=== PATIENT | female | born 1960 | race Caucasian/White ===

== ENCOUNTER 2022-03-19 08:36 | Outpatient (CLI) | payer BC, SELFPAY ==
[2022-03-19 13:49] LABS: Basophils Absolute Auto 0.03 K/uL (0.00-0.30); Basophils Percent Auto 0.4 % (0.0-3.0); Eosinophils Absolute Auto 0.09 K/uL (0.00-0.50); Eosinophils Percent Auto 1.3 % (0.0-7.0); Hematocrit 43.6 % (33.0-51.0); Hemoglobin* 14.2 gm/dL (12.0-16.0); Immature Granulocytes Abs Auto 0.01 K/uL (0.00-0.30); Lymphocytes Percent Auto 23.9 % (20-44); Mean Corpuscular HGB Conc 33 gm/dL (32-36); Mean Corpuscular Hemoglobin 30 pg (26-34); Mean Corpuscular Volume 91 fL (80-100); Monocytes Percent Auto 9.1 % (0.0-11.0); Neutrophils Absolute Auto 4.63 K/uL (1.7-7.0); Neutrophils Percent Auto 65.2 % (42.0-72.0); Platelet Count* 360 K/uL (140-440); RDW Coefficient of Variation % 13.2 % (11.5-15.5); Red Blood Count 4.78 m/uL (4.00-5.20); White Blood Count* 7.11 K/uL (4.50-11.00)
[2022-03-19 13:57] LABS: Cholesterol* 264 mg/dL (90-199); Glucose* 98 mg/dL (60-115)
[2022-03-19 13:58] LABS: HDL Cholesterol* 81 mg/dL (>=50); LDL Cholesterol Calculated 167 mg/dL (<100); Triglycerides* 79 mg/dL (40-149)
[2022-03-19 14:02] LABS: Slide Review Reflex No
[2022-03-20 16:47] LABS: Cortisol, Serum 6.9 ug/dL
== END 2022-03-19 08:37 | disposition home or self-care (01) ==
PROVIDERS: PCP Nurse Practitioner Family; Visit Provider Nurse Practitioner Family
DX: Z01.419 Encounter for gynecological examination (general) (routine) without abnormal findings (principal); E66.3 Overweight; R00.2 Palpitations; Z13.1 Encounter for screening for diabetes mellitus; Z13.0 Encounter for screening for diseases of the blood and blood-forming organs and certain disorders involving the immune mechanism; Z13.6 Encounter for screening for cardiovascular disorders
CPT/HCPCS: 36415; 80061; 82533; 82947; 84443; 85025

== ENCOUNTER 2022-04-08 16:02 | Outpatient (CLI) | payer BC, SELFPAY ==
--- NOTE | 2022-04-08 15:30 | CRLHL7_ITS ---
For Patients: As a result of the Cures Act, medical imaging exams and procedure reports are released immediately into your electronic medical record. You may view this report before your referring provider. If you have questions, please contact your health care provider. DXA BONE MINERAL DENSITY STUDY, 04/08/2022 Reason for exam: History of ???stress? fracture of left hip with unknown etiology. Current height (inches): 66.0 Weight (lbs.): 185.0 Menopause age: 48 Ethnicity: White 1. Have you had a previous hip or vertebral fracture? Yes. 2. Have you had any fractures during your adult life which did not result from significant trauma (e.g., auto accident)? Yes. 3. Did either of your parents have a hip fracture? No. 4. Do you smoke? No. 5. Have you ever taken Glucocorticoids? No. 6. Do you have rheumatoid arthritis? No. 7. Do you have secondary osteoporosis? No. 8. Do you drink 3 or more alcoholic drinks per day? No. 9. Are you being treated for osteoporosis? No. 10. Have you ever taken any of the following medications: Actonel, Evista, Fosamax, Miacalcin, Reclast, Boniva, Forteo, HRT (i.e., estrogen/hormone therapy), Protelos, Prolia, Vitamin D, Calcium, other ??? please specify. ANSWER: Yes; other: multivitamin. 11. Do you have any of the following medical conditions: Anorexia or bulimia, asthma or emphysema, end stage renal disease, hyperparathyroidism, any seizure disorders, cancer, inflammatory bowel diseases, hysterectomy, other ??? please specify. ANSWER: Yes; other: bladder repair. 12. What was your maximum height (inches)? 66. 13. Do you perform weight bearing exercise regularly? No. 14. Do you regularly consume dairy products? Yes. 15. Do you drink caffeinated beverages? Yes. 16. At what age did your period start? 12. 17. Are you premenopausal? No. 18. How many full-term pregnancies have you had? 3. 19. Have you ever missed your period for more than 6 months in a row (not including or menopause)? No. TECHNIQUE: Bone mineral density study was performed using the [facility]. FINDINGS: The results of the study expressed as bone mineral density (BMD) are as follows: Lumbar Spine L1 to L4: BMD: 0.982 g/cm2. T-score: -0.6. Z-score: 1.1. Neck Left: BMD: 0.844 g/cm2. T-score: 0.0. Z-score: 1.4. Right: BMD: 0.855 g/cm2. T-score: 0.1. Z-score: 1.5. Total Left: BMD: 0.876 g/cm2. T-score: -0.5. Z-score: 0.6. Right: BMD: 0.932 g/cm2. T-score: -0.1. Z-score: 1.1. IMPRESSION: Normal bone density. VINAY GHOTRA M.D. Diagnostic Radiologist [email or web address] Transcribed: 9:[address]/Dictated by: Vinay Ghotra MD @ 04/09/2022 8:58:00 AM (Electronically Signed)
== END 2022-04-08 16:03 | disposition home or self-care (01) ==
LOC: RAD 16:03
PROVIDERS: PCP Nurse Practitioner Family; Visit Provider Nurse Practitioner Family
DX: Z13.820 Encounter for screening for osteoporosis (principal)
CPT/HCPCS: 77080

== ENCOUNTER 2022-05-08 08:13 | Outpatient (CLI) | payer BC, SELFPAY ==
--- NOTE | 2022-05-08 08:15 | CRLHL7_ITS ---
For Patients: As a result of the Century Cures Act, medical imaging exams and procedure reports are released immediately into your electronic medical record. You may view this report before your referring provider. If you have questions, please contact your health care provider. BILATERAL SCREENING MAMMOGRAM WITH COMPUTER-AIDED DETECTION AND TOMOSYNTHESIS TECHNIQUE: CC and MLO views were obtained. These mammographic images have been obtained using full-field digital technique. These mammographic images were interpreted with the benefit of computer-aided detection. Breast Tomosynthesis was used in this interpretation. COMPARISON FILM: 05/07/21, 09/22/19, 09/22/13. FINDINGS: There are scattered areas of fibroglandular density IMPRESSION: There is no radiographic evidence for malignancy. ASSESSMENT: BI-RADS Category 1: Negative RECOMMENDATION: Routine screening mammogram in 1 year. A lay language report of this examination will be provided to the patient. Vinay Fletcher M.D. Diagnostic Radiologist [email or web address] [email or web address] haines/Dictated by: Vinay Fletcher MD @ 05/08/2022 10:15:00 AM (Electronically Signed)
== END 2022-05-08 08:14 | disposition home or self-care (01) ==
PROVIDERS: PCP Nurse Practitioner Family; Visit Provider Nurse Practitioner Family
DX: Z12.31 Encounter for screening mammogram for malignant neoplasm of breast (principal)
CPT/HCPCS: 77063; 77067

== ENCOUNTER 2022-08-07 08:03 | Outpatient (CLI) | payer BC, SELFPAY ==
[2022-08-07 15:12] LABS: Basophils Absolute Auto 0.03 K/uL (0.00-0.30); Basophils Percent Auto 0.5 % (0.0-3.0); Eosinophils Absolute Auto 0.12 K/uL (0.00-0.50); Eosinophils Percent Auto 1.9 % (0.0-7.0); Hemoglobin* 14.8 gm/dL (12.0-16.0); Immature Granulocytes Abs Auto 0.05 K/uL (0.00-0.30); Immature Granulocytes Pct Auto 0.8 %; Lymphocytes Percent Auto 28.8 % (20-44); Mean Corpuscular HGB Conc 33 gm/dL (32-36); Mean Corpuscular Hemoglobin 30 pg (26-34); Mean Corpuscular Volume 91 fL (80-100); Monocytes Percent Auto 8.8 % (0.0-11.0); Neutrophils Absolute Auto 3.69 K/uL (1.7-7.0); Neutrophils Percent Auto 59.2 % (42.0-72.0); Platelet Count* 300 K/uL (140-440); RDW Coefficient of Variation % 13.1 % (11.5-15.5); Red Blood Count 4.97 m/uL (4.00-5.20); White Blood Count* 6.24 K/uL (4.50-11.00)
[2022-08-07 15:27] LABS: Slide Review Reflex No
[2022-08-07 15:43] LABS: Strep A DNA Probe* NOT DETECTED (Not Detectd)
[2022-08-07 15:45] LABS: Cholesterol* 227 mg/dL (90-199); HDL Cholesterol* 89 mg/dL (>=50); LDL Cholesterol Calculated 124 mg/dL (<100); Triglycerides* 68 mg/dL (40-149)
== END 2022-08-07 08:04 | disposition home or self-care (01) ==
PROVIDERS: PCP Nurse Practitioner Family; Visit Provider Nurse Practitioner Family
DX: J02.9 Acute pharyngitis, unspecified (principal); E78.5 Hyperlipidemia, unspecified; E66.9 Obesity, unspecified; E66.3 Overweight; Z13.0 Encounter for screening for diseases of the blood and blood-forming organs and certain disorders involving the immune mechanism
CPT/HCPCS: 80061; 84443; 85025; 87651

== ENCOUNTER 2022-08-24 07:44 | Outpatient (CLI) | payer BC, SELFPAY ==
--- NOTE | 2022-08-24 08:00 | CRLHL7_ITS ---
For Patients: As a result of the Cures Act, medical imaging exams and procedure reports are released immediately into your electronic medical record. You may view this report before your referring provider. If you have questions, please contact your health care provider. CT NECK WITH CONTRAST DATE: 08/24/2022 CLINICAL HISTORY: Patient with pharyngitis and right neck swelling. TECHNIQUE: Standard helical CT image acquisition of the neck up to the skull base after bolus intravenous contrast enhancement. Multiplanar reconstructed images performed on a separate workstation. COMPARISON: None. FINDINGS: There is no evidence of abscess in the neck. The airway is patent. There is no cervical lymphadenopathy. The visualized intracranial contents are unremarkable. The visualized lung apices are unremarkable. The thyroid gland is unremarkable. The cervical spine is unremarkable. IMPRESSION: No evidence of abscess or masses in the neck. Please note that all CT scans at this facility use dose modulation, iterative reconstruction, and/or weight-based dosing when appropriate to reduce radiation dose to as low as reasonably achievable. Dictated by: Yuridia Hoyos MD @ 08/25/2022 06:42:16 (Electronically Signed)
[2022-08-24 08:16] LABS: Creatinine* 0.7 mg/dL (0.5-1.5); Estimated Glomerular Filt Rate 97 ml/min
== END 2022-08-24 07:45 | disposition home or self-care (01) ==
LOC: CT 07:45
PROVIDERS: PCP Nurse Practitioner Family; Visit Provider Nurse Practitioner Family
DX: J02.9 Acute pharyngitis, unspecified (principal); R22.1 Localized swelling, mass and lump, neck
CPT/HCPCS: 36415; 70491; 82565; Q9967

== ENCOUNTER 2023-05-13 07:55 | Outpatient (CLI) | payer BC, SELFPAY ==
--- NOTE | 2023-05-13 08:15 | CRLHL7_ITS ---
For Patients: As a result of the Century Cures Act, medical imaging exams and procedure reports are released immediately into your electronic medical record. You may view this report before your referring provider. If you have questions, please contact your health care provider. BILATERAL SCREENING MAMMOGRAM WITH COMPUTER-AIDED DETECTION AND TOMOSYNTHESIS TECHNIQUE: CC and MLO views were obtained. These mammographic images have been obtained using full-field digital technique. These mammographic images were interpreted with the benefit of computer-aided detection. Breast Tomosynthesis was used in this interpretation. COMPARISON FILM: 05/08/22, 05/07/21, 09/22/19. FINDINGS: There are scattered areas of fibroglandular density IMPRESSION: There is no radiographic evidence for malignancy. ASSESSMENT: BI-RADS Category 1: Negative RECOMMENDATION: Routine screening mammogram in 1 year. A lay language report of this examination will be provided to the patient. Vinay Fletcher M.D. Diagnostic Radiologist [email or web address] RUPINDER/Dictated by: Vinay Fletcher MD @ 05/13/2023 11:50:00 AM (Electronically Signed)
== END 2023-05-13 07:56 | disposition home or self-care (01) ==
LOC: MAMMO 07:57
PROVIDERS: PCP Nurse Practitioner Family; Visit Provider Nurse Practitioner Family
DX: Z12.31 Encounter for screening mammogram for malignant neoplasm of breast (principal)
CPT/HCPCS: 77063; 77067

== ENCOUNTER 2023-10-04 13:10 | Outpatient (CLI) | payer BC, SELFPAY | END 2023-10-04 13:11 | disposition home or self-care (01) | PROVIDERS: PCP Nurse Practitioner Family; Visit Provider Nurse Practitioner Family | DX: Z01.818 Encounter for other preprocedural examination (principal) | CPT/HCPCS: 80053; 85025 ==

== ENCOUNTER 2024-05-16 07:51 | Outpatient (CLI) | payer BC, SELFPAY ==
--- NOTE | 2024-05-16 08:15 | CRLHL7_ITS ---
For Patients: As a result of the Century Cures Act, medical imaging exams and procedure reports are released immediately into your electronic medical record. You may view this report before your referring provider. If you have questions, please contact your health care provider. BILATERAL SCREENING MAMMOGRAM WITH COMPUTER-AIDED DETECTION AND TOMOSYNTHESIS TECHNIQUE: CC and MLO views were obtained. These mammographic images have been obtained using full-field digital technique. These mammographic images were interpreted with the benefit of computer-aided detection. Breast Tomosynthesis was used in this interpretation. COMPARISON FILM: 05/13/23, 05/08/22, 05/07/21. FINDINGS: There are scattered areas of fibroglandular density. IMPRESSION: There is no radiographic evidence for malignancy. ASSESSMENT: BI-RADS Category 1: Negative RECOMMENDATION: Routine screening mammogram in 1 year. A lay language report of this examination will be provided to the patient. Vinay Fletcher M.D. Diagnostic Radiologist [email or web address] SP/Dictated by: Vinay Fletcher MD @ 05/22/2024 10:07:00 AM (Electronically Signed)
== END 2024-05-16 07:52 | disposition home or self-care (01) ==
LOC: MAMMO 07:53
PROVIDERS: PCP Nurse Practitioner Family; Visit Provider Nurse Practitioner Family
DX: Z12.31 Encounter for screening mammogram for malignant neoplasm of breast (principal)
CPT/HCPCS: 77063; 77067